=== PATIENT | female | born 1960 | race Caucasian/White ===

== ENCOUNTER 2017-05-02 15:21 | Outpatient (CLI) | payer OTHER ==
[~2017-05-02 15:21] MED LIST: PROTONIX40 M1 PO
== END 2017-05-02 15:29 | disposition home or self-care (01) ==
LOC: LAB 15:21
DX: B34.9 Viral infection, unspecified (principal); K83.3 Fistula of bile duct; J11.1 Influenza due to unidentified influenza virus with other respiratory manifestations

== ENCOUNTER 2017-07-04 08:32 | Outpatient (CLI) | payer OTHER | END 2017-07-04 14:38 | disposition home or self-care (01) | LOC: TOM 08:32 | DX: K83.1 Obstruction of bile duct (principal) ==

== ENCOUNTER 2017-07-25 08:25 | Day surgery (SDC) | payer OTHER | END 2017-07-25 16:00 | disposition home or self-care (01) | LOC: AMB-ENDOS 08:25 | DX: K80.50 Calculus of bile duct without cholangitis or cholecystitis without obstruction (principal) ==

== ENCOUNTER → 2017-07-26 | Emergency (ER) | payer OTHER ==
[~2017-07-26] VITALS: Ht 165.1 cm; Wt 65.8 kg
== END | disposition home or self-care (01) ==
LOC: ER 07:18
DX: B34.9 Viral infection, unspecified (principal); R50.9 Fever, unspecified

== ENCOUNTER 2021-06-13 08:01 | Outpatient (CLI) | payer OTHER | END 2021-06-13 08:11 | disposition home or self-care (01) | LOC: TOM 08:01 | PROVIDERS: ATTEND Internal Medicine Gastroenterology | DX: K76.0 Fatty (change of) liver, not elsewhere classified (principal); Z12.11 Encounter for screening for malignant neoplasm of colon; Q45.3 Other congenital malformations of pancreas and pancreatic duct ==